=== PATIENT | female | born 1940 | race Asian ===

== ENCOUNTER 2025-03-28 12:34 | Inpatient (IN) | payer MEDICARE ==
[~2025-03-28] VITALS: Ht 154.9 cm; Wt 47.2 kg
[2025-03-28 15:30] VITALS: BP 140/73; TEMP 98.1
[2025-03-28 16:07] VITALS: BP 140/73; TEMP 98.1
[2025-03-28] MEDS ORDERED: CLOP75TA15 PO (22:16)
[2025-03-28] MEDS ORDERED: ASPI-1420 PO (22:16)
[2025-03-28] MEDS ORDERED: ATOR40TA PO (22:16)
[2025-03-28] MEDS ORDERED: PANT40TA2 PO (22:16)
[2025-03-28 22:36] VITALS: BP 151/67; TEMP 98.2; O2SAT 95
[2025-03-29] MEDS ORDERED: REMEDY ESSENTIAL ZINC PASTE 113 GM TOP PRN
[2025-03-29] MEDS: PANTOPRAZOLE SODIUM 40 MG TABLET.DR PO SCH (06:07)
[2025-03-29 06:24] VITALS: BP 145/61; TEMP 98.2; O2SAT 95
[2025-03-29 08:00] VITALS: BP 120/71; TEMP 97.8; O2SAT 98
[2025-03-29] MEDS: ACETAMINOPHEN 500 MG TABLET PO PRN (09:05)
[2025-03-29] MEDS: ASPIRIN EC 81 MG TABLET.DR PO SCH (09:05)
[2025-03-29] MEDS: CLOPIDOGREL 75 MG TABLET PO SCH (09:06)
[2025-03-29] MEDS ORDERED: SERT25TA PO (13:54)
[2025-03-29] MEDS ORDERED: AMLO10TA59 PO (13:54)
[2025-03-29] MEDS ORDERED: EZET10TA15 PO (13:55)
[2025-03-29] MEDS ORDERED: LISI10TA29 PO (13:55)
[2025-03-29 16:00] VITALS: BP 120/71; TEMP 97.2; O2SAT 98
[2025-03-29 20:00] VITALS: BP 123/69; TEMP 98.5; O2SAT 94
[2025-03-29] MEDS: ATORVASTATIN 40 MG TABLET PO SCH (20:52)
[2025-03-30 07:00] VITALS: BP 154/61; TEMP 97.4; O2SAT 97
[2025-03-30 07:57] VITALS: BP 127/58; TEMP 97.6; O2SAT 96
[2025-03-30 16:00] VITALS: BP 108/50; TEMP 97.6; O2SAT 97
[2025-03-30 20:27] VITALS: BP 138/66; TEMP 98.3; O2SAT 99
[2025-03-31 06:27] VITALS: BP 132/62; TEMP 97.4; O2SAT 98
[2025-03-31 08:07] VITALS: BP 138/70; TEMP 97.7; O2SAT 97
[2025-03-31 16:00] VITALS: BP 131/73; TEMP 97.4; O2SAT 97
[2025-03-31 20:04] VITALS: BP 123/63; TEMP 98; O2SAT 95
[2025-04-01 05:52] VITALS: BP 148/72; TEMP 98.1; O2SAT 99
[2025-04-01 07:41] LABS: BASOPHILS % (AUTO) 0.4 % (0.0-2.0); EOSINOPHILS # (AUTO) 0.1 K/uL (0.0-0.7); EOSINOPHILS % (AUTO) 1.4 % (0.0-7.0); HEMATOCRIT 32.7 % (31.2-41.9); HEMOGLOBIN 10.8 g/dL (10.9-14.3); MEAN CORPUSCULAR HEMOGLOBIN 29.8 uug (24.7-32.8); MEAN CORPUSCULAR HGB CONC 33 g/dL (32.3-35.6); MEAN CORPUSCULAR VOLUME 89.9 fL (75.5-95.3); MONOCYTES # (AUTO) 0.5 K/uL (0.1-1.30); MONOCYTES % (AUTO) 7.1 % (0.0-11.0); NEUTROPHILS % (AUTO) 76.1 % (38.5-71.5); PLATELET COUNT (AUTO) 179 K/uL (179-408); RED BLOOD CELL COUNT(AUTO) 3.64 MIL/uL (3.63-4.92); RED CELL DISTRIBUTION WIDTH 14.1 % (12.3-17.7); WHITE BLOOD COUNT (AUTO) 6.5 K/uL (3.8-11.8)
[2025-04-01 07:50] LABS: CALCIUM 8.3 mg/dL (8.5-10.1); CARBON DIOXIDE 24 mmol/L (21-32); CHLORIDE 109 mmol/L (98-107); CREATININE 0.6 mg/dL (0.6-1.3); GLUCOSE 136 mg/dL (74-106); POTASSIUM 4.2 mmol/L (3.5-5.1); SODIUM SERUM 141 mmol/L (136-145); UREA NITROGEN, BLOOD 15 mg/dL (7-18)
[2025-04-01 07:58] LABS: DIFFERENTIAL COMMENT 1
[2025-04-01 08:24] VITALS: BP 147/69; TEMP 97.5; O2SAT 97
[2025-04-01] MEDS: LISINOPRIL 10 MG TABLET PO SCH (08:58)
[2025-04-01] MEDS: SERTRALINE HCL 50 MG TABLET PO SCH (08:58)
[2025-04-01 16:50] VITALS: BP 124/49; TEMP 98.1; O2SAT 95
[2025-04-01] MEDS: AMLODIPINE 10 MG TABLET PO SCH (18:05)
[2025-04-01] MEDS: EZETIMIBE 10 MG TABLET PO SCH (18:07)
[2025-04-01 21:26] VITALS: BP 135/62; TEMP 98.3; O2SAT 96
[2025-04-02 06:11] VITALS: BP 135/57; TEMP 98; O2SAT 97
[2025-04-02 08:03] VITALS: BP 133/65; TEMP 97.5; O2SAT 98
[2025-04-02 16:31] VITALS: BP 142/53; TEMP 97.8; O2SAT 97
[2025-04-02 20:00] VITALS: BP 141/56; TEMP 97.4; O2SAT 96
[2025-04-02] MEDS ORDERED: BISACODYL 5 MG TABLET.DR PO PRN (20:45)
[2025-04-02] MEDS: DOCUSATE SODIUM 100 MG CAPSULE PO SCH (21:36)
[2025-04-03 05:00] VITALS: BP 136/63; TEMP 97.6; O2SAT 94
[2025-04-03 07:33] VITALS: BP 148/63; TEMP 97; O2SAT 97
[2025-04-03 15:48] VITALS: BP 110/58; TEMP 97; O2SAT 95
[2025-04-03 20:00] VITALS: BP 128/59; TEMP 97.8; O2SAT 95
[2025-04-04 05:00] VITALS: BP 151/63; TEMP 97.5; O2SAT 97
[2025-04-04 08:00] VITALS: BP 134/54; TEMP 97.6; O2SAT 96
[2025-04-04 16:00] VITALS: BP 130/55; TEMP 98.2; O2SAT 100
[2025-04-04] MEDS: HYDROCODONE/APAP 5-325MG TABLET PO PRN (16:45)
[2025-04-04 20:38] VITALS: BP 118/55; TEMP 98; O2SAT 94
[2025-04-05 07:25] VITALS: BP 138/50; TEMP 97.2; O2SAT 96
[2025-04-05 08:06] VITALS: BP 139/61; TEMP 97.9; O2SAT 98
[2025-04-05 16:09] VITALS: BP 120/56; TEMP 97.6; O2SAT 96
[2025-04-05 19:52] VITALS: BP 123/53; TEMP 98.3; O2SAT 96
[2025-04-06 06:21] VITALS: TEMP 97.5
[2025-04-06 08:13] VITALS: BP 128/57; TEMP 97.8; O2SAT 96
[2025-04-06 15:52] VITALS: BP 122/75; TEMP 97.8; O2SAT 94
[2025-04-06 20:50] VITALS: BP 121/55; TEMP 98; O2SAT 96
[2025-04-07 06:11] VITALS: BP 119/57; TEMP 97.6; O2SAT 96
[2025-04-07 08:00] VITALS: BP 132/51; TEMP 97.6; O2SAT 96
[2025-04-07 16:00] VITALS: BP 112/57; TEMP 97.8; O2SAT 97
[2025-04-07 20:23] VITALS: BP 111/50; TEMP 97.8; O2SAT 96
[2025-04-08 06:08] VITALS: BP 118/50; TEMP 97.8; O2SAT 96
[2025-04-08 08:00] VITALS: BP 133/55; TEMP 97.7; O2SAT 100
[2025-04-08 16:07] VITALS: BP 125/62; TEMP 97.8; O2SAT 95
[2025-04-08 20:00] VITALS: BP 112/48; TEMP 98.2; O2SAT 94
[2025-04-09 05:00] VITALS: BP 143/50; TEMP 97.6; O2SAT 95
[2025-04-09 06:47] LABS: BASOPHILS % (AUTO) 0.8 % (0.0-2.0); EOSINOPHILS # (AUTO) 0.1 K/uL (0.0-0.7); HEMOGLOBIN 11.9 g/dL (10.9-14.3); LYMPHOCYTES # (AUTO) 1.3 K/uL (0.8-4.8); LYMPHOCYTES % (AUTO) 20.8 % (20.5-51.5); MEAN CORPUSCULAR HEMOGLOBIN 29.7 uug (24.7-32.8); MEAN CORPUSCULAR HGB CONC 33 g/dL (32.3-35.6); MEAN CORPUSCULAR VOLUME 89.8 fL (75.5-95.3); MONOCYTES # (AUTO) 0.3 K/uL (0.1-1.30); MONOCYTES % (AUTO) 5.1 % (0.0-11.0); NEUTROPHILS # (AUTO) 4.3 K/uL (1.8-8.9); NEUTROPHILS % (AUTO) 71.3 % (38.5-71.5); PLATELET COUNT (AUTO) 274 K/uL (179-408); RED BLOOD CELL COUNT(AUTO) 4.01 MIL/uL (3.63-4.92); RED CELL DISTRIBUTION WIDTH 14.6 % (12.3-17.7)
[2025-04-09 06:48] LABS: DIFFERENTIAL COMMENT 1
[2025-04-09 07:14] LABS: IRON, SERUM 53 ug/dL (50-175)
[2025-04-09 07:33] LABS: ALANINE AMINOTRANSFERASE 23 U/L (14-59); ALBUMIN 2.8 g/dL (3.4-5.0); ALKALINE PHOSPHATASE 156 U/L (50-136); ASPARTATE AMINOTRANSFERASE 6 U/L (15-37); BILIRUBIN,TOTAL 0.6 mg/dL (0.2-1.0); CALCIUM 8.4 mg/dL (8.5-10.1); CARBON DIOXIDE 29 mmol/L (21-32); CHLORIDE 105 mmol/L (98-107); CHOLESTEROL 104 mg/dL (<200); CREATININE 0.6 mg/dL (0.6-1.3); GLUCOSE 123 mg/dL (74-106); HDL CHOLESTEROL 57 mg/dL (40-60); MAGNESIUM 2.3 mg/dL (1.8-2.4); PHOSPHOROUS 3.9 mg/dL (2.5-4.9); POTASSIUM 4.2 mmol/L (3.5-5.1); SODIUM SERUM 140 mmol/L (136-145); TOTAL PROTEIN, SERUM 6.1 g/dL (6.4-8.2); TRIGLYCERIDES 68 MG/DL (30-150); UREA NITROGEN, BLOOD 16 mg/dL (7-18)
[2025-04-09 08:00] VITALS: BP 129/57; TEMP 98.1; O2SAT 94
[2025-04-09 15:54] VITALS: BP 114/40; TEMP 98.3; O2SAT 95
[2025-04-09 20:35] VITALS: BP 117/53; TEMP 97.6
[2025-04-10 07:22] VITALS: BP 148/55; TEMP 97.8; O2SAT 95
[2025-04-10 07:44] VITALS: BP 151/76; TEMP 97.8; O2SAT 97
[2025-04-10 16:00] VITALS: BP 110/60; TEMP 97.2; O2SAT 97
[2025-04-10 17:39] VITALS: BP 110/60
[2025-04-11] MEDS ORDERED: ACET-73 PO (12:15)
[2025-04-11] MEDS ORDERED: DOCU100C36 PO (12:16)
[2025-04-11] MEDS ORDERED: HYDR-4209 PO (12:18)
[2025-04-11] MEDS ORDERED: ZINC113P3 TP (12:20)
== END 2025-04-10 18:00 | disposition short-term general hospital (02) | DRG 57 ==
LOC: UNDOADMIN 20:33 → SA1 20:33
PROVIDERS: ADMIT Physical Medicine & Rehabilitation Pain Medicine; ATTEND Physical Medicine & Rehabilitation Pain Medicine
DX: I69.354 Hemiplegia and hemiparesis following cerebral infarction affecting left non-dominant side (principal); S42.212A Unspecified displaced fracture of surgical neck of left humerus, initial encounter for closed fracture; D68.59 Other primary thrombophilia; I10 Essential (primary) hypertension; W06.XXXA Fall from bed, initial encounter; E78.5 Hyperlipidemia, unspecified; I69.322 Dysarthria following cerebral infarction; I69.391 Dysphagia following cerebral infarction; R13.10 Dysphagia, unspecified; I69.392 Facial weakness following cerebral infarction; D64.9 Anemia, unspecified; Z79.899 Other long term (current) drug therapy; R73.9 Hyperglycemia, unspecified
CPT/HCPCS: 36415; 73060; 83550; 83735; 84100; 84443; 85025; 97535-GO-CO; A4663; A9150

== ENCOUNTER 2025-04-10 18:30 | Inpatient (IN) | payer MEDICARE ==
[~2025-04-10] VITALS: Ht 154.9 cm; Wt 47.2 kg
[~2025-04-10 18:30] MED LIST: AMLO10TA59 PO; ASPI-1420 PO; ATOR40TA PO; CLOP75TA15 PO; EZET10TA15 PO; LISI10TA29 PO; PANT40TA2 PO; PROPOFOL 200 MG/20 ML BOTTLE ONE; SERT25TA PO
[2025-04-10 19:15] VITALS: BP 115/52; TEMP 98.2; O2SAT 96
[2025-04-10] MEDS ORDERED: ONDANSETRON 4 MG/2 ML VIAL IV PRN (20:15)
[2025-04-10] MEDS ORDERED: ACETAMINOPHEN 325 MG TABLET PO PRN (20:15)
[2025-04-10] MEDS ORDERED: REMEDY ESSENTIAL ZINC PASTE 113 GM TP PRN (20:15)
[2025-04-10] MEDS: ATORVASTATIN 40 MG TABLET PO SCH (20:27)
[2025-04-10] MEDS: HYDROCODONE/APAP 10-325 MG TABLET PO PRN (20:29)
[2025-04-10] MEDS ORDERED: MORPHINE SULFATE 2 MG/1 ML DISP.SYRIN IV PRN (20:30)
[2025-04-11 06:36] VITALS: BP 119/48; TEMP 97.6; O2SAT 97
[2025-04-11] MEDS: PANTOPRAZOLE SODIUM 40 MG TABLET.DR PO SCH (06:40)
[2025-04-11 06:48] LABS: BASOPHILS # (AUTO) 0.1 K/UL (0.0-0.2); BASOPHILS % (AUTO) 0.9 % (0.0-2.0); EOSINOPHILS # (AUTO) 0.1 K/uL (0.0-0.7); EOSINOPHILS % (AUTO) 1.8 % (0.0-7.0); HEMATOCRIT 33.7 % (31.2-41.9); HEMOGLOBIN 11.2 g/dL (10.9-14.3); LYMPHOCYTES # (AUTO) 1.1 K/uL (0.8-4.8); LYMPHOCYTES % (AUTO) 18.4 % (20.5-51.5); MEAN CORPUSCULAR HEMOGLOBIN 29.8 uug (24.7-32.8); MEAN CORPUSCULAR HGB CONC 33 g/dL (32.3-35.6); MONOCYTES # (AUTO) 0.5 K/uL (0.1-1.30); NEUTROPHILS # (AUTO) 4.1 K/uL (1.8-8.9); NEUTROPHILS % (AUTO) 70.9 % (38.5-71.5); PLATELET COUNT (AUTO) 249 K/uL (179-408); RED BLOOD CELL COUNT(AUTO) 3.74 MIL/uL (3.63-4.92); RED CELL DISTRIBUTION WIDTH 14.9 % (12.3-17.7); WHITE BLOOD COUNT (AUTO) 5.7 K/uL (3.8-11.8)
[2025-04-11 06:55] LABS: DIFFERENTIAL COMMENT 1
[2025-04-11 07:02] LABS: CALCIUM 8.2 mg/dL (8.5-10.1); CARBON DIOXIDE 27 mmol/L (21-32); CHLORIDE 106 mmol/L (98-107); CHOLESTEROL 93 mg/dL (<200); CREATININE 0.7 mg/dL (0.6-1.3); GLUCOSE 122 mg/dL (74-106); HDL CHOLESTEROL 58 mg/dL (40-60); MAGNESIUM 2.1 mg/dL (1.8-2.4); PHOSPHOROUS 3.9 mg/dL (2.5-4.9); SODIUM SERUM 138 mmol/L (136-145); TRIGLYCERIDES 29 MG/DL (30-150); UREA NITROGEN, BLOOD 25 mg/dL (7-18)
[2025-04-11] MEDS: LISINOPRIL 10 MG TABLET PO SCH (08:26)
[2025-04-11] MEDS: SERTRALINE HCL 50 MG TABLET PO SCH (08:26)
[2025-04-11] MEDS: ASPIRIN EC 81 MG TABLET.DR PO SCH (08:26)
[2025-04-11] MEDS ORDERED: PANTOPRAZOLE SODIUM 40 MG TABLET.DR PO SCH (09:00)
[2025-04-11 11:54] VITALS: BP 126/57; TEMP 97.8; O2SAT 96
[2025-04-11] MEDS ORDERED: ACET-73 PO (12:15)
[2025-04-11] MEDS ORDERED: DOCU100C36 PO (12:16)
[2025-04-11] MEDS ORDERED: HYDR-4209 PO (12:18)
[2025-04-11] MEDS ORDERED: ZINC113P3 TP (12:20)
[2025-04-11 16:17] VITALS: BP 121/52; TEMP 98.6; O2SAT 97
[2025-04-11] MEDS: EZETIMIBE 10 MG TABLET PO SCH (17:17)
[2025-04-11] MEDS: AMLODIPINE 10 MG TABLET PO SCH (17:17)
[2025-04-11 19:16] VITALS: BP 126/56; TEMP 97.6; O2SAT 96
[2025-04-12] VITALS (8 sets, daily range): BP systolic 97–120; BP diastolic 46–76; TEMP 97.5–98.6; O2SAT 98–100
[2025-04-12] MEDS ORDERED: FENTANYL CITRATE 250 MCG/5 ML AMPUL ONE (07:09)
[2025-04-12] MEDS ORDERED: ROCURONIUM BROMIDE 50 MG/5 ML VIAL ONE (07:09)
[2025-04-12] MEDS ORDERED: VANCOMYCIN 1000 MG VIAL ONE (07:10)
[2025-04-12] MEDS ORDERED: ROPIVACAINE HCL/PF 0.5% ( 5 MG/ML ) , 20 ML VIAL ONE (07:59)
[2025-04-12] MEDS ORDERED: LABETALOL HCL 100 MG/20 ML VIAL ONE (08:09)
[2025-04-12] MEDS ORDERED: SEVOFLURANE 250 ML BOTTLE ONE (08:09)
[2025-04-12] MEDS: IV D5W-0.45% NS +20 KCL 1,000 ML IV PRN (10:58)
[2025-04-12] MEDS: CEFAZOLIN 1 G in IV DEXTROSE 5% 50 ML IV SCH (15:36)
[2025-04-12] MEDS: IV NORMAL SALINE 500 ML IV ONE (18:46)
[2025-04-12] MEDS: MORPHINE SULFATE 2 MG/1 ML DISP.SYRIN IV PRN (21:29)
[2025-04-13] VITALS (10 sets, daily range): BP systolic 109–141; BP diastolic 48–63; TEMP 97.4–99.4; O2SAT 93–100
[2025-04-13 07:34] LABS: CALCIUM 8.2 mg/dL (8.5-10.1); CARBON DIOXIDE 23 mmol/L (21-32); CHLORIDE 108 mmol/L (98-107); CREATININE 0.9 mg/dL (0.6-1.3); GLUCOSE 144 mg/dL (74-106); SODIUM SERUM 140 mmol/L (136-145); UREA NITROGEN, BLOOD 23 mg/dL (7-18)
[2025-04-13 07:36] LABS: BASOPHILS % (AUTO) 0.4 % (0.0-2.0); EOSINOPHILS % (AUTO) 0.1 % (0.0-7.0); HEMATOCRIT 21.5 % (31.2-41.9); LYMPHOCYTES # (AUTO) 0.8 K/uL (0.8-4.8); MEAN CORPUSCULAR HEMOGLOBIN 29.9 uug (24.7-32.8); MEAN CORPUSCULAR HGB CONC 33 g/dL (32.3-35.6); MEAN CORPUSCULAR VOLUME 89.9 fL (75.5-95.3); MONOCYTES # (AUTO) 0.7 K/uL (0.1-1.30); MONOCYTES % (AUTO) 9.1 % (0.0-11.0); NEUTROPHILS # (AUTO) 6.2 K/uL (1.8-8.9); NEUTROPHILS % (AUTO) 80.4 % (38.5-71.5); PLATELET COUNT (AUTO) 224 K/uL (179-408); RED CELL DISTRIBUTION WIDTH 15.4 % (12.3-17.7); WHITE BLOOD COUNT (AUTO) 7.7 K/uL (3.8-11.8)
[2025-04-13 07:39] LABS: POTASSIUM 5.3 mmol/L (3.5-5.1)
[2025-04-13 07:43] LABS: DIFFERENTIAL COMMENT 1; HEMOGLOBIN 7.2 g/dL (10.9-14.3); RED BLOOD CELL COUNT(AUTO) 2.39 MIL/uL (3.63-4.92)
[2025-04-13] MEDS: ASPIRIN EC 81 MG TABLET.DR PO SCH (08:09)
[2025-04-13] MEDS: HYDROCODONE/APAP 5-325MG TABLET PO PRN (10:05)
== END 2025-04-13 20:10 | DRG 493 ==
LOC: MEDSURG3 18:30 → TELE3 04-12 18:37 → MEDSURG3 04-12 22:42
PROVIDERS: ADMIT Nurse Practitioner Acute Care; ATTEND Nurse Practitioner Acute Care
PROC: 0PSD04Z Reposition Left Humeral Head with Internal Fixation Device, Open Approach (ICD-10-PCS; principal; 2025-04-12 07:30)
PROC: 30233N1 Transfusion of Nonautologous Red Blood Cells into Peripheral Vein, Percutaneous Approach (ICD-10-PCS; 2025-04-13)
DX: S42.212A Unspecified displaced fracture of surgical neck of left humerus, initial encounter for closed fracture (principal); D62 Acute posthemorrhagic anemia; I69.354 Hemiplegia and hemiparesis following cerebral infarction affecting left non-dominant side; I69.392 Facial weakness following cerebral infarction; I69.391 Dysphagia following cerebral infarction; R13.10 Dysphagia, unspecified; Y92.89 Other specified places as the place of occurrence of the external cause; T45.525A Adverse effect of antithrombotic drugs, initial encounter; X58.XXXA Exposure to other specified factors, initial encounter; I73.9 Peripheral vascular disease, unspecified; I25.10 Atherosclerotic heart disease of native coronary artery without angina pectoris; I10 Essential (primary) hypertension; E78.5 Hyperlipidemia, unspecified; F32.A Depression, unspecified; R29.810 Facial weakness
CPT/HCPCS: 36415; 73030; 73200; 83735; 84100; 85025; 85730; 86850; 86900; 86901; 86920; 93307; A4663; G0378; J0690; J1885; J2270; J2795; J3010; J3370; J3490; J7040; P9016

== ENCOUNTER 2025-04-14 16:50 | Inpatient (IN) | payer MEDICARE ==
[~2025-04-14] VITALS: Ht 154.9 cm; Wt 47.6 kg
[2025-04-14 16:43] VITALS: BP 181/60; TEMP 98; O2SAT 98
[~2025-04-14 16:50] MED LIST changes: +ACET-73 PO; +DOCU100C36 PO; +HYDR-4209 PO; -PROPOFOL 200 MG/20 ML BOTTLE ONE; +ZINC113P3 TP
[2025-04-14 17:36] VITALS: BP 158/63
[2025-04-14] MEDS ORDERED: ACETAMINOPHEN ES 500 MG TABLET- SA PATIENTS-PAIN ONLY PO PRN (19:00)
[2025-04-14] MEDS ORDERED: ACETAMINOPHEN 325 MG TABLET PO PRN (19:00)
[2025-04-14] MEDS ORDERED: ONDANSETRON 4 MG/2 ML VIAL IV PRN (19:00)
[2025-04-14] MEDS ORDERED: REMEDY ESSENTIAL ZINC PASTE 113 GM TP PRN (19:00)
[2025-04-14 19:25] VITALS: BP 130/56; TEMP 98.1; O2SAT 99
[2025-04-14] MEDS: IV D5 1/2 NS 1000 ML 1,000 ML IV PRN (19:47)
[2025-04-14] MEDS: ATORVASTATIN 40 MG TABLET PO SCH (20:27)
[2025-04-14] MEDS: DOCUSATE SODIUM 100 MG CAPSULE PO SCH (20:28)
[2025-04-14] MEDS: HYDROCODONE/APAP 5-325MG TABLET PO PRN (22:26)
[2025-04-15] VITALS (8 sets, daily range): BP systolic 136–164; BP diastolic 57–66; TEMP 97.4–98.5; O2SAT 97–100
[2025-04-15] MEDS: MORPHINE SULFATE 2 MG/1 ML DISP.SYRIN IV PRN ×2 (04:46→10:41)
[2025-04-15] MEDS: PANTOPRAZOLE SODIUM 40 MG TABLET.DR PO SCH (06:29)
[2025-04-15 06:47] LABS: BASOPHILS % (AUTO) 0.3 % (0.0-2.0); HEMATOCRIT 21.5 % (31.2-41.9); LYMPHOCYTES # (AUTO) 0.6 K/uL (0.8-4.8); MONOCYTES # (AUTO) 0.6 K/uL (0.1-1.30); MONOCYTES % (AUTO) 8.5 % (0.0-11.0); WHITE BLOOD COUNT (AUTO) 7.3 K/uL (3.8-11.8)
[2025-04-15 06:49] LABS: EOSINOPHILS % (AUTO) 0.5 % (0.0-7.0); LYMPHOCYTES % (AUTO) 8.4 % (20.5-51.5); MEAN CORPUSCULAR HEMOGLOBIN 29.7 uug (24.7-32.8); MEAN CORPUSCULAR HGB CONC 34 g/dL (32.3-35.6); NEUTROPHILS % (AUTO) 82.3 % (38.5-71.5); PLATELET COUNT (AUTO) 167 K/uL (179-408); RED CELL DISTRIBUTION WIDTH 15.2 % (12.3-17.7)
[2025-04-15 06:55] LABS: HEMOGLOBIN 7.3 g/dL (10.9-14.3)
[2025-04-15 06:57] LABS: DIFFERENTIAL COMMENT 1
[2025-04-15] MEDS ORDERED: FENTANYL CITRATE 100 MCG/2 ML AMPUL ONE (06:57)
[2025-04-15 06:58] LABS: CALCIUM 7.8 mg/dL (8.5-10.1); CARBON DIOXIDE 25 mmol/L (21-32); CHLORIDE 102 mmol/L (98-107); CREATININE 0.5 mg/dL (0.6-1.3); GLUCOSE 155 mg/dL (74-106); MAGNESIUM 1.9 mg/dL (1.8-2.4); PHOSPHOROUS 2.6 mg/dL (2.5-4.9); POTASSIUM 3.5 mmol/L (3.5-5.1); RED BLOOD CELL COUNT(AUTO) 2.45 MIL/uL (3.63-4.92); SODIUM SERUM 134 mmol/L (136-145); UREA NITROGEN, BLOOD 12 mg/dL (7-18)
[2025-04-15] MEDS ORDERED: MORPHINE SULFATE 4 MG/1 ML DISP.SYRIN ONE (06:58)
[2025-04-15] MEDS ORDERED: MIDAZOLAM HCL 2 MG/2 ML VIAL ONE (06:58)
[2025-04-15] MEDS ORDERED: ROCURONIUM BROMIDE 50 MG/5 ML VIAL ONE (06:59)
[2025-04-15] MEDS ORDERED: ROPIVACAINE HCL/PF 0.5% ( 5 MG/ML ) , 20 ML VIAL ONE (07:15)
[2025-04-15] MEDS: ASPIRIN EC 81 MG TABLET.DR PO SCH (08:19)
[2025-04-15] MEDS: LISINOPRIL 10 MG TABLET PO SCH (08:19)
[2025-04-15] MEDS: SERTRALINE HCL 50 MG TABLET PO SCH (08:20)
[2025-04-15] MEDS ORDERED: VANCOMYCIN 1000 MG VIAL ONE (08:30)
[2025-04-15] MEDS ORDERED: SUGAMMADEX SODIUM 200 MG/2 ML VIAL IV ONE (08:59)
[2025-04-15] MEDS ORDERED: FLUMAZENIL 0.5 MG/5 ML VIAL ONE (08:59)
[2025-04-15] MEDS ORDERED: BUPIVACAINE/EPI PF 0.25% 10 ML VIAL IJ ONE (09:16)
[2025-04-15] MEDS ORDERED: MORPHINE SULFATE 2 MG/1 ML DISP.SYRIN IV PRN ×3 (10:00→11:15)
[2025-04-15] MEDS ORDERED: ONDANSETRON 4 MG/2 ML VIAL IV PRN (10:00)
[2025-04-15] MEDS ORDERED: IV D5W-0.45% NS +20 KCL 1,000 ML IV ONE (10:07)
[2025-04-15] MEDS ORDERED: MORPHINE SULFATE 2 MG/1 ML DISP.SYRIN ONE (10:35)
[2025-04-15] MEDS: IV D5W-0.45% NS +20 KCL 1,000 ML IV PRN (11:42)
[2025-04-15] MEDS: CEFAZOLIN 1 G in IV DEXTROSE 5% 50 ML IV SCH (16:01)
[2025-04-15] MEDS: AMLODIPINE 10 MG TABLET PO SCH (17:23)
[2025-04-15] MEDS: EZETIMIBE 10 MG TABLET PO SCH (17:23)
[2025-04-15] MEDS: HYDROCODONE/APAP 10-325 MG TABLET PO PRN (21:50)
[2025-04-16 04:10] VITALS: BP 131/61; TEMP 98.4; O2SAT 97
[2025-04-16 11:30] VITALS: BP 120/46; TEMP 98.7; O2SAT 97
[2025-04-16 15:33] VITALS: BP 146/57; TEMP 98.8; O2SAT 97
== END 2025-04-16 15:45 | DRG 493 ==
LOC: MEDSURG3 16:50
PROVIDERS: ADMIT Nurse Practitioner Acute Care; ATTEND Nurse Practitioner Acute Care
PROC: 0PSG04Z Reposition Left Humeral Shaft with Internal Fixation Device, Open Approach (ICD-10-PCS; 2025-04-15)
PROC: 30233N1 Transfusion of Nonautologous Red Blood Cells into Peripheral Vein, Percutaneous Approach (ICD-10-PCS; 2025-04-15)
PROC: 05HB33Z Insertion of Infusion Device into Right Basilic Vein, Percutaneous Approach (ICD-10-PCS; principal; 2025-04-15 07:30)
DX: S42.302A Unspecified fracture of shaft of humerus, left arm, initial encounter for closed fracture (principal); D62 Acute posthemorrhagic anemia; I69.354 Hemiplegia and hemiparesis following cerebral infarction affecting left non-dominant side; W18.30XA Fall on same level, unspecified, initial encounter; Y92.129 Unspecified place in nursing home as the place of occurrence of the external cause; I25.10 Atherosclerotic heart disease of native coronary artery without angina pectoris; E78.5 Hyperlipidemia, unspecified; R13.10 Dysphagia, unspecified; I10 Essential (primary) hypertension; Z91.81 History of falling; F32.A Depression, unspecified; G31.84 Mild cognitive impairment of uncertain or unknown etiology; S42.302D Unspecified fracture of shaft of humerus, left arm, subsequent encounter for fracture with routine healing; W19.XXXD Unspecified fall, subsequent encounter; Y92.12 Nursing home as the place of occurrence of the external cause; Y99.8 Other external cause status
CPT/HCPCS: 36415; 73030; 83735; 84100; 85018; 85025; 85610; 85730; 86850; 86900; 86901; 86920; A6213; G0378; J0690; J2250; J2270; J2795; J3010; J3370; J3490; J7040; P9016

== ENCOUNTER 2025-04-16 10:48 | Inpatient (IN) | payer MEDICARE ==
[~2025-04-16] VITALS: Ht 154.9 cm; Wt 47.2 kg
[2025-04-16 11:01] VITALS: BP 135/61; TEMP 98.4
[2025-04-16 11:40] VITALS: BP 135/61; TEMP 98.4
[2025-04-16 16:00] VITALS: BP 142/55; TEMP 98.8; O2SAT 97
[2025-04-16] MEDS ORDERED: ACETAMINOPHEN ES 500 MG TABLET- SA PATIENTS-PAIN ONLY PO PRN (17:15)
[2025-04-16] MEDS: EZETIMIBE 10 MG TABLET PO SCH (18:14)
[2025-04-16] MEDS: AMLODIPINE 10 MG TABLET PO SCH (18:15)
[2025-04-16 19:47] VITALS: BP 132/56; TEMP 99; O2SAT 96
[2025-04-16] MEDS: DOCUSATE SODIUM 100 MG CAPSULE PO SCH (20:42)
[2025-04-16] MEDS: ATORVASTATIN 40 MG TABLET PO SCH (20:42)
[2025-04-16] MEDS: ACETAMINOPHEN 325 MG TABLET PO PRN (20:49)
[2025-04-17] MEDS: PANTOPRAZOLE SODIUM 40 MG TABLET.DR PO SCH (06:34)
[2025-04-17 07:16] VITALS: BP 137/55; TEMP 98.3; O2SAT 98
[2025-04-17 08:00] VITALS: BP 138/56; TEMP 97.6; O2SAT 98
[2025-04-17] MEDS: ASPIRIN EC 81 MG TABLET.DR PO SCH (08:46)
[2025-04-17] MEDS: LISINOPRIL 10 MG TABLET PO SCH (08:46)
[2025-04-17] MEDS: SERTRALINE HCL 50 MG TABLET PO SCH (08:47)
[2025-04-17] MEDS: CLOPIDOGREL 75 MG TABLET PO SCH (08:50)
[2025-04-17] MEDS ORDERED: Medication Not On Formulary EA (Sertraline Hcl (Zoloft) 1 TAB) PO SCH (09:00)
[2025-04-17 16:03] VITALS: BP 129/53; TEMP 98.2; O2SAT 99
[2025-04-17 19:35] VITALS: BP 135/63; TEMP 97.8; O2SAT 97
[2025-04-18 06:48] VITALS: BP 139/68; TEMP 97.6; O2SAT 96
[2025-04-18 07:47] VITALS: BP 165/67; TEMP 98.6; O2SAT 98
[2025-04-19 06:50] VITALS: BP 146/65; TEMP 97.5; O2SAT 97
[2025-04-19 08:00] VITALS: BP 141/62; TEMP 97.8; O2SAT 97
[2025-04-19 16:00] VITALS: BP 143/67; TEMP 97.2; O2SAT 97
[2025-04-19 20:17] VITALS: BP 147/60; TEMP 98.4; O2SAT 97
[2025-04-20 05:34] VITALS: BP 155/69; TEMP 98.4; O2SAT 96
[2025-04-20 08:00] VITALS: BP 154/64; TEMP 97.4; O2SAT 96
[2025-04-20 18:48] VITALS: BP 166/62; TEMP 98.5; O2SAT 96
[2025-04-20 20:00] VITALS: BP 136/56; TEMP 98.7; O2SAT 97
[2025-04-21 05:00] VITALS: BP 124/73; TEMP 98.2; O2SAT 98
[2025-04-21 08:00] VITALS: BP 144/67; TEMP 98.7; O2SAT 97
[2025-04-21 16:00] VITALS: BP 143/63; TEMP 98.2; O2SAT 99
[2025-04-21 20:00] VITALS: BP 142/67; TEMP 98.7; O2SAT 99
[2025-04-22 07:02] VITALS: BP 146/65; TEMP 98; O2SAT 99
[2025-04-22 07:40] LABS: PLATELET COUNT (AUTO) 274 K/uL (179-408); RED BLOOD CELL COUNT(AUTO) 3.00 MIL/uL (3.63-4.92); RED CELL DISTRIBUTION WIDTH 17.2 % (12.3-17.7); WHITE BLOOD COUNT (AUTO) 6.3 K/uL (3.8-11.8)
[2025-04-22 07:51] LABS: CREATININE 0.5 mg/dL (0.6-1.3); SODIUM SERUM 145 mmol/L (136-145); UREA NITROGEN, BLOOD 8 mg/dL (7-18)
[2025-04-22 08:00] VITALS: BP 167/74; TEMP 97.5; O2SAT 98
[2025-04-22 18:01] VITALS: BP 160/69; TEMP 97.3; O2SAT 97
[2025-04-22 20:50] VITALS: BP 158/64; TEMP 98.6
[2025-04-23 05:22] VITALS: BP 167/76; TEMP 97.8; O2SAT 96
[2025-04-23 08:00] VITALS: BP 155/67; TEMP 98.2; O2SAT 97
[2025-04-23 16:50] VITALS: BP 124/65; TEMP 98.2; O2SAT 97
[2025-04-23 19:56] VITALS: BP 142/63; TEMP 97.3; O2SAT 96
[2025-04-24] MEDS: HYDROCODONE/APAP 5-325MG TABLET PO ONE (01:56)
[2025-04-24 08:01] LABS: PLATELET COUNT (AUTO) 338 K/uL (179-408); RED BLOOD CELL COUNT(AUTO) 3.12 MIL/uL (3.63-4.92); RED CELL DISTRIBUTION WIDTH 17.2 % (12.3-17.7); WHITE BLOOD COUNT (AUTO) 5.6 K/uL (3.8-11.8)
[2025-04-24 08:18] LABS: CREATININE 0.5 mg/dL (0.6-1.3); SODIUM SERUM 144 mmol/L (136-145); UREA NITROGEN, BLOOD 10 mg/dL (7-18)
[2025-04-24 19:28] VITALS: BP 145/61; TEMP 98.4; O2SAT 95
[2025-04-25 05:17] VITALS: BP 136/60; TEMP 98.2; O2SAT 98
[2025-04-25 07:35] LABS: PLATELET COUNT (AUTO) 374 K/uL (179-408); RED BLOOD CELL COUNT(AUTO) 3.46 MIL/uL (3.63-4.92); RED CELL DISTRIBUTION WIDTH 17.8 % (12.3-17.7); WHITE BLOOD COUNT (AUTO) 6.0 K/uL (3.8-11.8)
[2025-04-25 08:00] VITALS: BP 136/83; TEMP 97.9; O2SAT 95
[2025-04-25 18:04] VITALS: BP 112/67; TEMP 98.3; O2SAT 97
[2025-04-25 19:50] VITALS: BP 140/56; TEMP 98.3; O2SAT 97
[2025-04-26 05:17] VITALS: BP 104/62; TEMP 98; O2SAT 98
[2025-04-26 20:31] VITALS: BP 143/72; TEMP 98.4
[2025-04-27 06:06] VITALS: BP 145/66; TEMP 98
[2025-04-27 07:37] VITALS: BP 158/61; TEMP 98; O2SAT 97
[2025-04-27 15:35] VITALS: BP 136/67; TEMP 98.2; O2SAT 97
[2025-04-27 19:33] VITALS: BP 142/65; TEMP 98.7; O2SAT 96
[2025-04-28 06:49] VITALS: BP 138/60; TEMP 97.6; O2SAT 97
[2025-04-28 08:00] VITALS: BP 126/72; TEMP 97.8; O2SAT 95
[2025-04-28 16:23] VITALS: BP 143/65; TEMP 97.7; O2SAT 96
[2025-04-28 19:54] VITALS: BP 138/59; TEMP 98.5; O2SAT 95
[2025-04-29] MEDS: TRAZODONE 50 MG TABLET PO SCH (00:02)
[2025-04-29 05:32] VITALS: BP 136/60; TEMP 98.2; O2SAT 98
[2025-04-29 08:24] VITALS: BP 158/71; TEMP 98; O2SAT 96
[2025-04-29 20:00] VITALS: BP 133/58; TEMP 98.6; O2SAT 95
[2025-04-30 05:08] VITALS: BP 130/60; TEMP 98.4; O2SAT 95
[2025-04-30 07:30] LABS: CREATININE 0.7 mg/dL (0.6-1.3); SODIUM SERUM 143 mmol/L (136-145); UREA NITROGEN, BLOOD 13 mg/dL (7-18)
[2025-04-30 08:48] VITALS: BP 134/80; TEMP 98; O2SAT 98
[2025-04-30 16:39] VITALS: BP 136/49; TEMP 98.1; O2SAT 97
[2025-04-30 19:59] VITALS: BP 134/65; TEMP 98.5; O2SAT 98
[2025-05-01] MEDS: ACIDOPHILUS/BULGARICUS CHEW TAB GT SCH (02:17)
[2025-05-01 06:53] VITALS: BP 126/62; TEMP 98.1; O2SAT 96
[2025-05-01 08:44] VITALS: BP 120/67; TEMP 98.1; O2SAT 97
[2025-05-01 08:49] VITALS: BP 120/67
[2025-05-01 09:48] VITALS: TEMP 98.1
== END 2025-05-01 14:00 | DRG 559 ==
PROVIDERS: ADMIT Physical Medicine & Rehabilitation Pain Medicine; ATTEND Physical Medicine & Rehabilitation Pain Medicine
DX: S42.302D Unspecified fracture of shaft of humerus, left arm, subsequent encounter for fracture with routine healing (principal); E43 Unspecified severe protein-calorie malnutrition; D68.59 Other primary thrombophilia; F03.93 Unspecified dementia, unspecified severity, with mood disturbance; I69.354 Hemiplegia and hemiparesis following cerebral infarction affecting left non-dominant side; D62 Acute posthemorrhagic anemia; M97.32XD Periprosthetic fracture around internal prosthetic left shoulder joint, subsequent encounter; W19.XXXD Unspecified fall, subsequent encounter; E78.5 Hyperlipidemia, unspecified; F32.9 Major depressive disorder, single episode, unspecified; I10 Essential (primary) hypertension; R29.810 Facial weakness; I69.392 Facial weakness following cerebral infarction; R29.6 Repeated falls; K57.30 Diverticulosis of large intestine without perforation or abscess without bleeding; E03.9 Hypothyroidism, unspecified; M84.48XD Pathological fracture, other site, subsequent encounter for fracture with routine healing; S32.591D Other specified fracture of right pubis, subsequent encounter for fracture with routine healing; R73.03 Prediabetes; Z91.81 History of falling; I69.391 Dysphagia following cerebral infarction; R13.10 Dysphagia, unspecified
CPT/HCPCS: 36415; 83735; 84100; 85025; 97535-GO-CO; A4663